=== PATIENT | female | born 1980 | race African-American/Black ===

== ENCOUNTER 2022-08-11 23:52 | Emergency (ER) | payer OTHER ==
[2022-08-12 00:08] VITALS: BMI 32.5
[2022-08-12 01:11] LABS: BASO % 0.6 % (0-2.0); HEMATOCRIT 36.7 % (32.4-45.2); HEMOGLOBIN 12.2 GM/dL (10.7-15.3); LYMPH % 31.3 % (8-40); MCH 26.7 pg (25.7-33.7); MCHC 33.2 g/dl (32.0-36.0); MEAN CELL VOLUME 80.4 fl (80-96); MEAN PLT VOLUME 8.2 fl (7.5-11.1); MONO % 6.8 % (3.8-10.2); NEUT % 57.3 % (42.8-82.8); PLATELET COUNT 244 10^3/uL (134-434); RBC 4.56 M/mm3 (3.60-5.2); RDW 16.2 % (11.6-15.6); WHITE BLOOD COUNT 7.1 K/mm3 (4.0-10.0)
[2022-08-12 01:32] LABS: BLOOD UREA NITROGEN 19.2 mg/dL (7-18); CALCIUM 8.9 mg/dL (8.5-10.1)
[2022-08-12 01:33] LABS: ALBUMIN 3.4 g/dl (3.4-5.0)
[2022-08-12 01:36] LABS: CREATININE 1.1 mg/dL (0.55-1.3)
[2022-08-12 01:37] LABS: BILIRUBIN,TOTAL 0.2 mg/dL (0.2-1); TOT PROT 7.2 g/dl (6.4-8.2)
[2022-08-12 09:43] VITALS: TEMP 97.8
[2022-08-12 10:36] VITALS: BP 132/86; PULSE 84; RESP 14
== END 2022-08-12 10:43 | disposition home or self-care (01) ==
LOC: JER 23:52
DX: M79.10 Myalgia, unspecified site (principal)
CPT/HCPCS: 0241U-QW; 36415; 80053; 85025; 99283-25

== ENCOUNTER 2022-08-12 20:28 | Emergency (ER) | payer OTHER ==
[2022-08-12 20:41] VITALS: BP 136/86; PULSE 74; RESP 19; TEMP 98.6; BMI 75.0
[2022-08-12] MEDS ORDERED: ACETAMINOPHEN 325 MG TABLET (FP) PO ONE (21:09)
[2022-08-12] MEDS ORDERED: ACETAMINOPHEN 325 MG TABLET (FP) ONE (21:15)
[2022-08-12 21:56] LABS: BASO % 0.4 % (0-2.0); EOS % 4.1 % (0-4.5); HEMATOCRIT 36.9 % (32.4-45.2); HEMOGLOBIN 11.8 GM/dL (10.7-15.3); LYMPH % 30.5 % (8-40); MEAN CELL VOLUME 81.4 fl (80-96); MEAN PLT VOLUME 8.7 fl (7.5-11.1); MONO % 6.9 % (3.8-10.2); NEUT % 58.1 % (42.8-82.8); PLATELET COUNT 233 10^3/uL (134-434); RBC 4.54 M/mm3 (3.60-5.2); RDW 16.3 % (11.6-15.6); WHITE BLOOD COUNT 6.6 K/mm3 (4.0-10.0)
[2022-08-12 22:02] LABS: CHLORIDE 110 mmol/L (98-107); SODIUM 143 mmol/L (136-145)
[2022-08-12 22:04] LABS: ALBUMIN 3.3 g/dl (3.4-5.0); ANION GAP 5 MMOL/L (8-16); BLOOD UREA NITROGEN 20.8 mg/dL (7-18); CALCIUM 8.9 mg/dL (8.5-10.1); CO2 29 mmol/L (21-32); GLUCOSE,RANDOM 101 mg/dL (74-106)
[2022-08-12 22:07] LABS: CREATININE 1.1 mg/dL (0.55-1.3); SGOT/AST 12 U/L (15-37); SGPT/ALT 22 U/L (13-61)
[2022-08-12 22:09] LABS: BILIRUBIN,TOTAL 0.2 mg/dL (0.2-1)
[2022-08-12 22:10] LABS: ALK PHOS 119 U/L (45-117)
== END 2022-08-13 00:09 | disposition home or self-care (01) ==
LOC: JER 20:28
DX: R07.9 Chest pain, unspecified (principal)
CPT/HCPCS: 36415; 71046-TC-FY; 80053; 84484; 84703; 85025; 93005; 93010; 99285-25

== ENCOUNTER 2022-08-14 00:01 | Observation (INO) | payer OTHER ==
[2022-08-14 00:12] VITALS: BMI 75.0
[2022-08-14 02:13] LABS: INR 0.93 (0.83-1.09); PROTHROMBIN TIME (PATIENT) 10.7 SEC (9.7-13.0)
[2022-08-14 02:15] LABS: ACTIVATED PTT 26.2 SECONDS (25.2-36.5); BASO % 0.7 % (0-2.0); EOS % 2.7 % (0-4.5); HEMATOCRIT 38.8 % (32.4-45.2); HEMOGLOBIN 12.6 GM/dL (10.7-15.3); LYMPH % 27.8 % (8-40); MCH 26.3 pg (25.7-33.7); MCHC 32.6 g/dl (32.0-36.0); MEAN CELL VOLUME 80.8 fl (80-96); MEAN PLT VOLUME 9.1 fl (7.5-11.1); MONO % 4.9 % (3.8-10.2); NEUT % 63.9 % (42.8-82.8); RDW 16.5 % (11.6-15.6); WHITE BLOOD COUNT 9.3 K/mm3 (4.0-10.0)
[2022-08-14 03:40] LABS: ALBUMIN 3.5 g/dl (3.4-5.0)
[2022-08-14 03:42] LABS: BLOOD UREA NITROGEN 19.4 mg/dL (7-18)
[2022-08-14 03:44] LABS: CREATININE 1.1 mg/dL (0.55-1.3)
[2022-08-14 03:45] LABS: BILIRUBIN,TOTAL 0.3 mg/dL (0.2-1); TOT PROT 7.2 g/dl (6.4-8.2)
[2022-08-14 04:52] LABS: PLATELET COUNT 259.9 10^3/uL (134-434)
[2022-08-14] MEDS ORDERED: NICOTINE 21 MG/24 HOURS TOPICAL PATCH ONE (10:32)
[2022-08-14] MEDS: NICOTINE 21 MG/24 HOURS TOPICAL PATCH TD SCH (10:35)
[2022-08-14] MEDS ORDERED: LORazepam 2 MG/ML SDV VIAL IVPUSH PRN (11:53)
[2022-08-14] MEDS: INSULIN SLIDING SCALE (NOVOLOG) 1 VIAL SQ SCH ×2 (17:27→21:46)
[2022-08-14 18:12] VITALS: RESP 18
[2022-08-14] MEDS: THIAMINE HCL 100 MG TABLET (FP) PO SCH (21:43)
[2022-08-15 05:59] VITALS: BP 132/90; PULSE 76; TEMP 98.6
[2022-08-15] MEDS: INSULIN SLIDING SCALE (NOVOLOG) 1 VIAL SQ SCH ×2 (06:19→12:18)
[2022-08-15 09:38] LABS: HEMATOCRIT 37.1 % (32.4-45.2); HEMOGLOBIN 12.1 GM/dL (10.7-15.3); MCH 26.3 pg (25.7-33.7); MCHC 32.7 g/dl (32.0-36.0); MEAN CELL VOLUME 80.2 fl (80-96); MEAN PLT VOLUME 8.5 fl (7.5-11.1); PLATELET COUNT 237 10^3/uL (134-434); RBC 4.62 M/mm3 (3.60-5.2); RDW 16.2 % (11.6-15.6); WHITE BLOOD COUNT 5.4 K/mm3 (4.0-10.0)
[2022-08-15] MEDS: NICOTINE 21 MG/24 HOURS TOPICAL PATCH TD SCH (09:55)
[2022-08-15] MEDS: THIAMINE HCL 100 MG TABLET (FP) PO SCH (09:55)
[2022-08-15 09:59] LABS: ALBUMIN 3.3 g/dl (3.4-5.0); BLOOD UREA NITROGEN 19.9 mg/dL (7-18); CALCIUM 8.9 mg/dL (8.5-10.1)
[2022-08-15 10:00] LABS: CHOLESTEROL 205 mg/dL (50-200); LDL CHOLESTEROL (ONLY SJRH) 87 mg/dL (5-100); TRIGLYCERIDES 66 mg/dL (0-150)
[2022-08-15] MEDS ORDERED: ENOXAPARIN NA (PORCINE) 40 MG/0.4 ML DISP.SYRIN SQ SCH (10:00)
[2022-08-15] MEDS ORDERED: FOLIC ACID 1 MG TABLET (FP) PO SCH (10:00)
[2022-08-15] MEDS ORDERED: MULTIVITAMINS (DAILY MVI) TABLET (FP) PO SCH (10:00)
[2022-08-15 10:02] LABS: CREATININE 1.1 mg/dL (0.55-1.3)
[2022-08-15 10:03] LABS: BILIRUBIN,TOTAL 0.3 mg/dL (0.2-1); HDL CHOLESTEROL 100 mg/dL (40-60); TOT PROT 6.9 g/dl (6.4-8.2)
== END 2022-08-15 15:45 | disposition home or self-care (01) ==
LOC: JER 00:01 → JERBED 00:14 → J8W 14:32
PROVIDERS: ADMIT Internal Medicine
PROC: 3E023GC Introduction of Other Therapeutic Substance into Muscle, Percutaneous Approach (ICD-10-PCS; principal; 2022-08-14)
DX: R07.89 Other chest pain (principal); E11.9 Type 2 diabetes mellitus without complications; R50.9 Fever, unspecified; R09.3 Abnormal sputum; R06.02 Shortness of breath; Z59.00 Homelessness unspecified; E66.01 Morbid (severe) obesity due to excess calories; Z68.45 Body mass index [BMI] 70 or greater, adult; Z29.8 Encounter for other specified prophylactic measures; F17.210 Nicotine dependence, cigarettes, uncomplicated; F41.9 Anxiety disorder, unspecified
CPT/HCPCS: 36415; 71045-TC-FY; 80053; 80061; 82962; 83036; 84443; 84484; 84703; 85025; 85027; 85610; 85730; 93005; 93010; 93306-TC; 96372; 97116-GP; 97161-GP; 99285-25; C9803-CS; G0378; U0003; U0005